=== PATIENT | male | born 1975 | race Hispanic/Latino ===

== ENCOUNTER 2021-01-07 09:57 | Emergency (ER) | payer SELFPAY ==
[2021-01-07] MEDS ORDERED: Fluorescein Opthalmic Strip ONE (10:51)
[2021-01-07] MEDS ORDERED: Proparacaine 0.5% Opth 15 ML BOT ONE (10:51)
== END 2021-01-07 12:38 | disposition home or self-care (01) ==
LOC: NAV ERS 09:57
DX: S05.01XA Injury of conjunctiva and corneal abrasion without foreign body, right eye, initial encounter (principal); I10 Essential (primary) hypertension; X58.XXXA Exposure to other specified factors, initial encounter
CPT/HCPCS: 99282